=== PATIENT | male | born 1985 | race African-American/Black ===

== ENCOUNTER 2018-08-19 08:17 | Emergency (ER) | payer SELFPAY ==
[2018-08-19] MEDS ORDERED: predniSONE 20 MG TAB ONE (09:14)
[2018-08-19] MEDS ORDERED: KETOROLAC 30 MG/ML INJ ONE (09:14)
--- NOTE | 2018-08-19 09:32 | EDPHYS ---
Physician Documentation [facility] Name: Kin Hernandez Age: 33 yrs Sex: Male : 1985 Arrival Date: 08/19/2018 Time: 08:19 Bed 8 Private MD: ED Physician Mazin Warren HPI: 08/19 09:14 This 33 yrs old Black Male presents to ER via Ambulatory with complaints of Hip Pain. kdr 09:14 The patient or guardian reports pain. that occurred at an unknown site. The complaints kdr affect the Right posterior superior illiac crest. Onset: The symptoms/episode began/occurred He had femur surgery about two years ago and has had intermittent pain since then. For the last month, it has been worse. 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 Modifying factors: The symptoms are alleviated by nothing, the symptoms are aggravated by any movement. Associated signs and symptoms: Loss of consciousness: the patient experienced no loss of consciousness, Pertinent positives: None. Pertinent negatives: None. Severity of symptoms: At their worst the symptoms were mild, moderate, in the emergency department the symptoms are unchanged. The patient has experienced similar episodes in the past, a few times. The patient has not recently seen a physician. Historical: - Allergies: 08:36 No Known Allergies; ss - Home Meds: 08:36 None [Active]; ss - PMHx: 08:36 None; ss - PSHx: 08:36 R femur repair (heath placed); ss - Immunization history:: Adult Immunizations up to date. - Social history:: Smoking status: Patient uses tobacco products, smokes one-half pack cigarettes per day, recently quit 3 weeks ago. - Ebola Screening: : Patient denies exposure to infectious person Patient denies travel to an Ebola-affected area in the 21 days before illness onset. ROS: 09:14 Constitutional: Negative for fever, chills, and weight loss, Eyes: Negative for injury, kdr pain, redness, and discharge, Neck: Negative for injury, pain, and swelling, Cardiovascular: Negative for chest pain, palpitations, and edema, Respiratory: Negative for shortness of breath, cough, wheezing, and pleuritic chest pain, Abdomen/GI: Negative for abdominal pain, nausea, vomiting, diarrhea, and constipation, : Negative for injury, bleeding, discharge, and swelling, Skin: Negative for injury, rash, and discoloration, Neuro: Negative for headache, weakness, numbness, tingling, and seizure activity. Psych: Negative for depression, anxiety, suicide ideation, homicidal ideation, and hallucinations, Allergy/Immunology: Negative for hives, rash, and allergies, Endocrine: Negative for neck swelling, polydipsia, polyuria, polyphagia, and marked weight changes, Hematologic/Lymphatic: Negative for swollen nodes, abnormal bleeding, and unusual bruising. 09:14 Back: Positive for pain at rest, pain with movement, Negative for injury or acute deformity, decreased range of motion. Exam: 09:14 Constitutional: This is a well developed, well nourished patient who is awake, alert, kdr and in no acute distress. Head/Face: Normocephalic, atraumatic. Eyes: Pupils equal round and reactive to light, extra-ocular motions intact. Lids and lashes normal. Conjunctiva and sclera are non-icteric and not injected. Cornea within normal limits. Periorbital areas with no swelling, redness, or edema. Neck: Trachea midline, no thyromegaly or masses palpated, and no cervical lymphadenopathy. Supple, full range of motion without nuchal rigidity, or vertebral point tenderness. No Meningismus. Chest/axilla: Normal chest wall appearance and motion. Nontender with no deformity. No lesions are appreciated. Cardiovascular: Regular rate and rhythm with a normal S1 and S2. No gallops, murmurs, or rubs. Normal PMI, no JVD. No pulse deficits. Respiratory: Lungs have equal breath sounds bilaterally, clear to auscultation and percussion. No rales, rhonchi or wheezes noted. No increased work of breathing, no retractions or nasal flaring. Abdomen/GI: Soft, non-tender, with normal bowel sounds. No distension or tympany. No guarding or rebound. No evidence of tenderness throughout. Back: No spinal tenderness. No costovertebral tenderness. Full range of motion with pain. Skin: Warm, dry with normal turgor. Normal color with no rashes, no lesions, and no evidence of cellulitis. Neuro: Awake and alert, GCS 15, oriented to person, place, time, and situation. Cranial nerves II-XII grossly intact. Motor strength 5/5 in all extremities. Sensory grossly intact. Cerebellar exam normal. Normal gait. Psych: Awake, alert, with orientation to person, place and time. Behavior, mood, and affect are within normal limits. 09:14 Back: pain, of the right posterior superior illiac crest. Vital Signs: 08:33 BP 118 / 78; Pulse 77; Resp 15; Temp 97.5(TE); Pulse Ox 100% on R/A; Weight 74.84 kg; ss Height 6 ft. 0 in. (182.88 cm); Pain 8/10; 08:33 Body Mass Index 22.38 (74.84 kg, 182.88 cm) ss MDM: 09:14 Data reviewed: vital signs, nurses notes. Counseling: I had a detailed discussion with kdr the patient and/or guardian regarding: the historical points, exam findings, and any diagnostic results supporting the discharge/admit diagnosis, the need for outpatient follow up. 09:31 Patient medically screened. kdr Administered Medications: 09:07 Drug: predniSONE 60 mg Route: PO; hb 09:30 Follow up: Response: No adverse reaction hb 09:07 Drug: TORadol 60 mg Route: IM; Site: right deltoid; hb 09:30 Follow up: Response: No adverse reaction hb Disposition: 08/19/18 09:31 Discharged to Home. Impression: Pain in right hip, Strain of muscle, fascia and tendon of right hip. - Condition is Stable. - Discharge Instructions: Musculoskeletal Pain, Hip Pain. - Prescriptions for Ibuprofen 800 mg Oral Tablet - take 1 tablet by ORAL route every 8 hours As needed take with food; 30 tablet. Cyclobenzaprine 10 mg Oral Tablet - take 1 tablet by ORAL route every 8 hours As needed Do not take prior to or duing work or potentially dangerous situations.; 16 tablet. Medrol (Irineo) 4 mg Oral Tablets, Dose Pack - take 1 tablet by ORAL route as directed - follow package instructions; 1 packet. - Medication Reconciliation Form, Thank You Letter, Work release form form. - Follow up: Private Physician; When: 2 - 3 days; Reason: If symptoms return, Further diagnostic work-up, Recheck today's complaints, Continuance of care, Re-evaluation by your physician. - Problem is an acute exacerbation. - Symptoms have improved. Signatures: Mazin Warren MD MD [facility] Alanna Camp RN RN Jess Walls RN RN hb Corrections: (The following items were deleted from the chart) 09:50 09:31 08/19/2018 09:31 Discharged to Home. Impression: Pain in right hip; Strain of hb muscle, fascia and tendon of right hip. Condition is Stable. Forms are Medication Reconciliation Form, Thank You Letter, Antibiotic Education, Prescription Opioid Use. Follow up: Private Physician; When: 2 - 3 days; Reason: If symptoms return, Further diagnostic work-up, Recheck today's complaints, Continuance of care, Re-evaluation by your physician. Problem is an acute exacerbation. Symptoms have improved. kdr
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
== END 2018-08-19 09:50 | disposition home or self-care (01) ==
LOC: ER 08:17
DX: S76.011A Strain of muscle, fascia and tendon of right hip, initial encounter (principal); F17.210 Nicotine dependence, cigarettes, uncomplicated
CPT/HCPCS: 96372; 99283; J7512

== ENCOUNTER 2018-11-01 17:49 | Emergency (ER) | payer SELFPAY ==
--- OUTSIDE RECORDS SUMMARY | 2018-11-01 17:52 | XMS REPORT ---
:1985 [facility] Address [address] [place] [address] [address] [place] [address] Care Team Providers Name Role Phone Unavailable Unavailable Unavailable Problems This patient has no known problems. Allergies, Adverse Reactions, Alerts This patient has no known allergies or adverse reactions. Medications This patient has no known medications.
--- NOTE | 2018-11-01 19:13 | ER ---
Nurse's Notes [facility] Name: Kin Hernandez Age: 33 yrs Sex: Male : 1985 Arrival Date: 11/01/2018 Time: 17:51 Bed Waiting Private MD: Diagnosis: Presentation: 11/01 17:54 Presenting complaint: Patient states: left lower tooth pain x 2 days, reports "a little sv bit ago I started breaking out in cold sweat and trembling and I feel bad.". Transition of care: patient was not received from another setting of care. Onset of symptoms was October 30, 2018. Care prior to arrival: None. 17:54 Method Of Arrival: Ambulatory sv 17:54 Acuity: LARA 2 sv Triage Assessment: 17:54 General: Appears uncomfortable, Behavior is cooperative, appropriate for age, anxious. sv Pain: Complains of pain in mouth. Neuro: Level of Consciousness is awake, alert, obeys commands, Oriented to person, place, time, situation, Gait is steady. Respiratory: Respiratory effort is even, unlabored, Respiratory pattern is regular, symmetrical. Derm: Skin is clammy, Skin is normal. Historical: - Allergies: 17:55 No Known Allergies; sv - PMHx: 17:55 None; sv - PSHx: 17:55 R femur repair (heath placed); sv Vital Signs: 17:55 BP 144 / 102; Pulse 86; Resp 16; Temp 98.2; Pulse Ox 100% ; Weight 72.57 kg; Height 6 sv ft. 0 in. (182.88 cm); Pain 10/10; 17:55 Body Mass Index 21.70 (72.57 kg, 182.88 cm) sv ED Course: 17:51 Patient arrived in ED. ds1 17:55 Triage completed. sv 17:55 Arm band placed on. sv 18:30 Patient's name was called from ER lobby. No response. aj1 18:45 Patient's name was called from ER lobby. No response. sv 19:12 Patient's name was called from ER lobby. No response. aj 19:13 Garret Farooq MD is Attending Physician. aj Administered Medications: No medications were administered Point of Care Testing: Blood Glucose: 17:58 Blood Glucose: 96 mg/dL; sv Ranges: Outcome: 19:13 Patient left the ED. aj Signatures: Demetra Vital RN RN aj1 Jyoti Burnham RN RN sv Isabel Gonzalez RN RN aj Sanford, Demi ds1 Corrections: (The following items were deleted from the chart) 17:55 17:54 Acuity: LARA 3 sv sv
== END 2018-11-01 19:13 | disposition left against medical advice (07) ==
LOC: ER 17:49
DX: K08.89 Other specified disorders of teeth and supporting structures (principal); Z53.29 Procedure and treatment not carried out because of patient's decision for other reasons
CPT/HCPCS: 82962; 99281

== ENCOUNTER 2018-11-02 07:27 | Emergency (ER) | payer SELFPAY ==
--- OUTSIDE RECORDS SUMMARY | 2018-11-02 07:29 | XMS REPORT ---
:1985 [facility] Address [address] [place] [address] [address] [place] [address] Care Team Providers Name Role Phone Unavailable Unavailable Unavailable Problems This patient has no known problems. Allergies, Adverse Reactions, Alerts This patient has no known allergies or adverse reactions. Medications This patient has no known medications.
[2018-11-02 08:37] LABS: Absolute Monocytes 1.2 K/uL (0.1-1.3); Basophils % 0.4 % (0-1.3); Eosinophils % 0.1 % (0-4.4); Hematocrit 47.2 % (39.6-49.0); Lymphocytes % 5.1 % (15.3-44.8); MPV 10.2 fL (7.6-11.3); Monocytes % 6.4 % (3.3-12.3); RBC Red Blood Cell Count 5.17 M/uL (4.33-5.43)
[2018-11-02] MEDS ORDERED: KETOROLAC 30 MG/ML INJ ONE (08:40)
[2018-11-02] MEDS ORDERED: NA CHLORIDE 0.9% 1,000 ML ONE (08:40)
[2018-11-02] MEDS ORDERED: CLINDAMYCIN 900MG/D5W 900 MG/50 ML IVPB IV ONE (08:40)
[2018-11-02] MEDS ORDERED: DEXAMETHASONE 10 MG/ML VIAL ONE (08:50)
[2018-11-02] MEDS ORDERED: ONDANSETRON 4 MG/2 ML VIAL ONE (08:50)
[2018-11-02 09:12] LABS: ALT/SGPT 15 U/L (12-78); AST/SGOT 19 U/L (15-37); Albumin 4.2 g/dL (3.4-5.0); Alkaline Phosphatase 95 U/L (45-117); BUN Blood Urea Nitrogen 18 mg/dL (7-18); Bicarbonate 24 mmol/L (21-32); Bilirubin Total 0.6 mg/dL (0.2-1.0); Glucose Level 112 mg/dL (74-106); Potassium 3.6 mmol/L (3.5-5.1); Sodium Level 138 mmol/L (136-145)
[2018-11-02] MEDS ORDERED: CEFTRIAXONE/SWI 1gm 1 GM/10 ML SYR ONE (09:32)
--- NOTE | 2018-11-02 10:15 | ER ---
Nurse's Notes [facility] Name: Kin Hernandez Age: 33 yrs Sex: Male : 1985 Arrival Date: 11/02/2018 Time: 07:30 Bed 19 Private MD: Diagnosis: Dental caries;Dental root caries-abscess, moderate trismus;Elevated white blood cell count Presentation: 11/02 07:36 Presenting complaint: Patient states: dental pain x 4 days. Pt reports that his L lower ss molar is coming in and it has his whole jaw hurting and is swollen. Transition of care: patient was not received from another setting of care. Onset of symptoms was October 29, 2018. Risk Assessment: Do you want to hurt yourself or someone else? Patient reports no desire to harm self or others. Initial Sepsis Screen: Does the patient meet any 2 criteria? No. Patient's initial sepsis screen is negative. Does the patient have a suspected source of infection? No. Patient's initial sepsis screen is negative. Care prior to arrival: None. 07:36 Method Of Arrival: Ambulatory ss 07:36 Acuity: LARA 3 ss Triage Assessment: 08:00 General: Appears in no apparent distress. comfortable, Behavior is calm, cooperative, bp appropriate for age. Historical: - Allergies: 07:37 No Known Allergies; ss - Home Meds: 07:37 None [Active]; ss - PMHx: 07:37 None; ss - PSHx: 07:37 R femur; ss - Immunization history:: Adult Immunizations up to date. - Social history:: Smoking status: Patient uses tobacco products, denies chronic smoking, but will smoke occasionally. - Ebola Screening: : Patient denies exposure to infectious person Patient denies travel to an Ebola-affected area in the 21 days before illness onset. - Family history:: not pertinent. Screenin:36 Abuse screen: Denies threats or abuse. Denies injuries from another. Nutritional bp screening: No deficits noted. Tuberculosis screening: No symptoms or risk factors identified. Fall Risk None identified. Assessment: 07:35 General: Appears in no apparent distress. comfortable, slender, Behavior is bp cooperative, appropriate for age, anxious. Pain: Complains of pain in mouth. Neuro: Level of Consciousness is awake, alert, obeys commands, Oriented to person, place, time, situation, Appropriate for age. Cardiovascular: No deficits noted. Respiratory: Airway is patent Respiratory effort is even, unlabored, Respiratory pattern is regular, symmetrical. GI: No signs and/or symptoms were reported involving the gastrointestinal system. : No signs and/or symptoms were reported regarding the genitourinary system. EENT: Reports DENTAL PAIN. Derm: No deficits noted. Musculoskeletal: No deficits noted. 09:23 Reassessment: ALL CURRENT ORDERS COMPLETED, CT PENDING. bp 09:31 Reassessment: PT TO CT WITH [facility]. bp 09:54 Reassessment: PT RETURNED FROM CT. bp 10:28 Reassessment: TRANSFER IN PROCESS, NO ACUTE DISTRESS AT THIS TIME. bp 11:10 Reassessment: REPORT TO MARNIE GRADY AT [facility], TRANSPORT PENDING FOR TRANSFER. bp 11:48 Reassessment: [facility] AT B/S, PT [place] WITH [facility]. bp Vital Signs: 07:37 BP 114 / 87; Pulse 72; Resp 16; Temp 99.1(TE); Pulse Ox 100% on R/A; Weight 72.57 kg; ss Height 6 ft. 0 in. (182.88 cm); Pain 10/10; 09:21 BP 106 / 64; Pulse 86; Resp 16; Pulse Ox 100% ; bp 10:26 BP 116 / 65; Pulse 64; Resp 14; Pulse Ox 98% ; bp 11:11 BP 106 / 72; Pulse 79; Resp 16; Pulse Ox 98% ; bp 07:37 Body Mass Index 21.70 (72.57 kg, 182.88 cm) ED Course: 07:30 Patient arrived in ED. mr 07:32 Johnathan Waite, RN is Primary Nurse. bp 07:33 Allan Gandhi MD is Attending Physician. tw4 07:36 Patient has correct armband on for positive identification. Bed in low position. Call bp light in reach. Side rails up X 1. 07:37 Triage completed. ss 07:37 Arm band placed on right wrist. ss 07:46 Kyle Ness MD is Attending Physician. hemalatha 08:29 Lab(s) recollected, by me, sent to lab. Inserted saline lock: 20 gauge in right em1 forearm, using aseptic technique. Blood collected. 09:38 CT Soft Tissue Neck W/contr In Process Unspecified. EDMS 10:43 attempted transfer to [facility], pt was denied for lack of capacity. bd 11:10 No provider procedures requiring assistance completed. Patient transferred, IV remains bp in place. 11:22 pt accepted by [facility]. bd Administered Medications: 08:25 Drug: NS 0.9% 1000 ml Route: IV; Rate: 1 bolus; Site: right forearm; bp 09:30 Follow up: IV Status: Completed infusion; IV Intake: 1000ml bp 08:25 Drug: Clindamycin 900 mg Route: IVPB; Infused Over: 30 mins; Site: right forearm; bp 11:48 Follow up: IV Status: Completed infusion; IV Intake: 50ml bp 08:25 Drug: TORadol 30 mg Route: IVP; Site: right forearm; bp 08:46 Follow up: Response: No adverse reaction bp 08:45 Drug: Decadron - Dexamethasone 10 mg Route: IVP; Site: right forearm; bp 08:46 Follow up: Response: No adverse reaction bp 08:45 Drug: Zofran 4 mg Route: IVP; Site: right forearm; bp 08:46 Follow up: Response: No adverse reaction bp 09:15 Drug: Rocephin - (cefTRIAXone) 1 grams Route: IVPB; Infused Over: 30 mins; Site: right bp forearm; 10:29 Follow up: IV Status: Completed infusion; IV Intake: 20ml bp Intake: 09:30 IV: 1000ml; Total: 1000ml. bp 10:29 IV: 20ml; Total: 1020ml. bp 11:48 IV: 50ml; Total: 1070ml. bp Outcome: 10:14 ER care complete, transfer ordered by . hemalatha 11:11 Transferred by ground EMS to [facility], Transfer form completed. bp 11:11 Condition: stable 11:11 Instructed on the need for transfer. 11:49 Patient left the ED. bp Signatures: Dispatcher [employer] EDMS Deann Robb Corey, MD MD cha Rivera, Minerva mr Robbi, Gopal em1 Alanna Camp, MIGUEL A GRADY ss Johnathan Waite RN RN bp Wadley, Terrence, MD MD tw4 Corrections: (The following items were deleted from the chart) 10:43 07:36 Acuity: LARA 5 ss ss
--- NOTE | 2018-11-02 10:15 | EDPHYS ---
Physician Documentation [facility] Name: Kin Hernandez Age: 33 yrs Sex: Male : 1985 Arrival Date: 11/02/2018 Time: 07:30 Bed 19 Private MD: ED Physician Kyle Ness HPI: 11/02 08:19 This 33 yrs old Black Male presents to ER via Ambulatory with complaints of Jaw Pain. hemalatha 08:19 The patient or guardian reports pain, swelling, tenderness. The complaints affect the [facility] left jaw. Onset: The symptoms/episode began/occurred 3 day(s) ago. Associated signs and symptoms: The patient has no apparent associated signs or symptoms. The patient presents with pain, swelling. The problem is located in the lower left third molar and lower left second molar. Modifying factors: The symptoms are alleviated by nothing, the symptoms are aggravated by chewing. Historical: - Allergies: 07:37 No Known Allergies; ss - Home Meds: 07:37 None [Active]; ss - PMHx: 07:37 None; ss - PSHx: 07:37 R femur; ss - Immunization history:: Adult Immunizations up to date. - Social history:: Smoking status: Patient uses tobacco products, denies chronic smoking, but will smoke occasionally. - Ebola Screening: : Patient denies exposure to infectious person Patient denies travel to an Ebola-affected area in the 21 days before illness onset. - Family history:: not pertinent. ROS: 08:19 Constitutional: Negative for fever, chills, and weight loss, Eyes: Negative for injury, hemaaltha pain, redness, and discharge, Neck: Negative for injury, pain, and swelling, Cardiovascular: Negative for chest pain, palpitations, and edema, Respiratory: Negative for shortness of breath, cough, wheezing, and pleuritic chest pain, Abdomen/GI: Negative for abdominal pain, nausea, vomiting, diarrhea, and constipation, Back: Negative for injury and pain, : Negative for injury, bleeding, discharge, and swelling, MS/Extremity: Negative for injury and deformity, Skin: Negative for injury, rash, and discoloration, Neuro: Negative for headache, weakness, numbness, tingling, and seizure. 08:19 ENT: Positive for dental pain, Teeth pain Exam: 08:19 Constitutional: This is a well developed, well nourished patient who is awake, alert, hemalatha and in no acute distress. Eyes: Pupils equal round and reactive to light, extra-ocular motions intact. Lids and lashes normal. Conjunctiva and sclera are non-icteric and not injected. Cornea within normal limits. Periorbital areas with no swelling, redness, or edema. ENT: Nares patent. No nasal discharge, no septal abnormalities noted. Tympanic membranes are normal and external auditory canals are clear. Oropharynx with no redness, swelling, or masses, exudates, or evidence of obstruction, uvula midline. Mucous membranes moist. Neck: Trachea midline, no thyromegaly or masses palpated, and no cervical lymphadenopathy. Supple, full range of motion without nuchal rigidity, or vertebral point tenderness. No Meningismus. Chest/axilla: Normal chest wall appearance and motion. Nontender with no deformity. No lesions are appreciated. Cardiovascular: Regular rate and rhythm with a normal S1 and S2. No gallops, murmurs, or rubs. Normal PMI, no JVD. No pulse deficits. Respiratory: Lungs have equal breath sounds bilaterally, clear to auscultation and percussion. No rales, rhonchi or wheezes noted. No increased work of breathing, no retractions or nasal flaring. Abdomen/GI: Soft, non-tender, with normal bowel sounds. No distension or tympany. No guarding or rebound. No evidence of tenderness throughout. Back: No spinal tenderness. No costovertebral tenderness. Full range of motion. Male : Normal genitalia with no discharge or lesions. Skin: Warm, dry with normal turgor. Normal color with no rashes, no lesions, and no evidence of cellulitis. MS/ Extremity: Pulses equal, no cyanosis. Neurovascular intact. Full, normal range of motion. Neuro: Awake and alert, GCS 15, oriented to person, place, time, and situation. Cranial nerves II-XII grossly intact. Motor strength 5/5 in all extremities. Sensory grossly intact. Cerebellar exam normal. Normal gait. Psych: Awake, alert, with orientation to person, place and time. Behavior, mood, and affect are within normal limits. 08:19 Head/face: Noted is swelling, tenderness, that is mild, of the left ear and left jaw. Vital Signs: 07:37 BP 114 / 87; Pulse 72; Resp 16; Temp 99.1(TE); Pulse Ox 100% on R/A; Weight 72.57 kg; ss Height 6 ft. 0 in. (182.88 cm); Pain 10; 09:21 BP 106 / 64; Pulse 86; Resp 16; Pulse Ox 100% ; bp 10:26 BP 116 / 65; Pulse 64; Resp 14; Pulse Ox 98% ; bp 11:11 BP 106 / 72; Pulse 79; Resp 16; Pulse Ox 98% ; bp 07:37 Body Mass Index 21.70 (72.57 kg, 182.88 cm) ss MDM: 07:46 Patient medically screened. [facility] 08:21 Data reviewed: vital signs, nurses notes, lab test result(s), EKG, radiologic studies, hemalatha plain films. 11/02 08:19 Order name: CBC with Diff; Complete Time: 10:53 [facility] 11/02 08:19 Order name: Comprehensive Metabolic Panel; Complete Time: 09:55 [facility] 11/02 08:19 Order name: CT Soft Tissue Neck W/contr; Complete Time: 10:26 [facility] 11/02 08:42 Order name: CBC Smear Scan; Complete Time: 10:53 EDMS Administered Medications: 08:25 Drug: NS 0.9% 1000 ml Route: IV; Rate: 1 bolus; Site: right forearm; bp 09:30 Follow up: IV Status: Completed infusion; IV Intake: 1000ml bp 08:25 Drug: Clindamycin 900 mg Route: IVPB; Infused Over: 30 mins; Site: right forearm; bp 11:48 Follow up: IV Status: Completed infusion; IV Intake: 50ml bp 08:25 Drug: TORadol 30 mg Route: IVP; Site: right forearm; bp 08:46 Follow up: Response: No adverse reaction bp 08:45 Drug: Decadron - Dexamethasone 10 mg Route: IVP; Site: right forearm; bp 08:46 Follow up: Response: No adverse reaction bp 08:45 Drug: Zofran 4 mg Route: IVP; Site: right forearm; bp 08:46 Follow up: Response: No adverse reaction bp 09:15 Drug: Rocephin - (cefTRIAXone) 1 grams Route: IVPB; Infused Over: 30 mins; Site: right bp forearm; 10:29 Follow up: IV Status: Completed infusion; IV Intake: 20ml bp Disposition: 11/02/18 10:14 Transfer ordered to [facility]. Diagnosis are Dental caries, Dental root caries - abscess, moderate trismus, Elevated white blood cell count. - Reason for transfer: Higher level of care. - Accepting physician is to [place]. - Condition is Stable. - Problem is new. - Symptoms have improved. Signatures: Dispatcher [employer] EDKyle Macias MD MD cha Smirch, Shelby, RN RN Johnathan Waite RN RN bp Corrections: (The following items were deleted from the chart) 10:47 10:14 11/02/2018 10:14 Transfer ordered to [facility]. Diagnosis is Dental caries; hemalatha Dental root caries - abscess, moderate trismus; Elevated white blood cell count. Reason for transfer: Higher level of care. Accepting physician is to [facility]. Condition is Stable. Problem is new. Symptoms have improved. [facility] 10:54 10:47 11/02/2018 10:14 Transfer ordered to [facility]. Diagnosis is Dental caries; hemalatha Dental root caries - abscess, moderate trismus; Elevated white blood cell count. Reason for transfer: Higher level of care. Accepting physician is to [place]. Condition is Stable. Problem is new. Symptoms have improved. [facility] 11:49 10:54 11/02/2018 10:14 Transfer ordered to [facility]. bp Diagnosis is Dental caries; Dental root caries - abscess, moderate trismus; Elevated white blood cell count. Reason for transfer: Higher level of care. Accepting physician is to [place]. Condition is Stable. Problem is new. Symptoms have improved. hemalatha
--- NOTE | 2018-11-02 10:20 | RAD REPORT ---
EXAM DESCRIPTION: CT - Soft Tissue Neck W/Contr - 11/02/2018 9:38 am CLINICAL HISTORY: Neck pain/facial pain and swelling COMPARISON: None. TECHNIQUE: Computed axial tomography of the neck was obtained. 50 cc Isovue 300 was administered in travenously. Coronal and sagittal reconstruction was performed. All CT scans are performed using dose optimization technique as appropriate and may include automated exposure control or mA/KV adjustment according to patient size. FINDINGS: A 6 millimeter lucency is present within a left mandibular molar consistent with abscess. The left masseter and left medial pterygoid muscles are thickened and edematous. Stranding within th e left parapharyngeal fat. The edema within the subcutaneous tissues of the left lower face consisten t with cellulitis The oropharynx is deviated to the right. The left lateral mucosa of the oropharynx appears edematous. The remainder of the airway appears unremarkable. Reactive lymph nodes present. Left submandibular gland is mildly enlarged and heterogeneous IMPRESSION: 6 millimeter left mandibular molar abscess Left masseter and left medial pterygoid muscles are thickened and edematous consistent with myositis. Stranding within the left parapharyngeal fat and deviation of the oropharynx to the right with edema within the left lateral oropharynx. An abscess is not seen. Left submandibular gland inflammation
[2018-11-02 10:34] LABS: Blood Morphology Comment NOT SEEN (NOT SEEN); Platelet Estimate ADEQ; Urine White Blood Cell Casts OK
== END 2018-11-02 11:49 | disposition short-term general hospital (02) ==
LOC: ER 07:27
DX: K02.7 Dental root caries (principal); K02.9 Dental caries, unspecified; K04.7 Periapical abscess without sinus; R25.2 Cramp and spasm; D72.829 Elevated white blood cell count, unspecified; Z72.0 Tobacco use
CPT/HCPCS: 36415; 70491; 80053; 85025; J0696; J1100; J2405; J7030; Q9967

== ENCOUNTER 2020-03-31 15:32 | Emergency (ER) | payer SELFPAY ==
--- OUTSIDE RECORDS SUMMARY | 2020-03-31 15:34 | XMS REPORT | Continuity of Care Document ---
:1985 Author Organization [facility] t Address [address] [place] [address] Dr. Rosario [address] [place] [id number] Care Team Providers Name Role Phone Unavailable Unavailable Unavailable Problems This patient has no known problems. Allergies, Adverse Reactions, Alerts This patient has no known allergies or adverse reactions. Medications This patient has no known medications. Procedures This patient has no known procedures. Results This patient has no known results.
[2020-03-31] MEDS ORDERED: TETRACAINE HCL 0.5% 4ML OPTH ONE (16:13)
[2020-03-31] MEDS ORDERED: FLUORESCEIN SODIUM 1 MG/WRAP ONE (16:13)
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
[2020-03-31 18:54] VITALS: TEMP 98.6
[2020-03-31 18:59] VITALS: BP 129/89; O2SAT 100
== END 2020-03-31 18:45 | disposition home or self-care (01) ==
LOC: ER 15:32
DX: S02.832A Fracture of medial orbital wall, left side, initial encounter for closed fracture (principal); H11.32 Conjunctival hemorrhage, left eye; W22.8XXA Striking against or struck by other objects, initial encounter; Y93.9 Activity, unspecified; Y92.9 Unspecified place or not applicable
CPT/HCPCS: 70481; 99284; Q9967

== ENCOUNTER 2021-12-05 12:15 | Emergency (ER) | payer SELFPAY ==
--- OUTSIDE RECORDS SUMMARY | 2021-12-05 12:17 | XMS REPORT | Continuity of Care Document ---
:1985 Author Organization [facility] t Address [address] [place] [address] Care Team Providers Name Role Phone PCP, DOES NOT HAVE A Primary Care Physician Unavailable DALILA LIZAMA Attending Clinician Unavailable Dalila Lizama MD Attending Clinician Problems Condition Condition Condition Status Onset Resolution Last Treating Co mments Source Name Details Category Date Date Treatment Clinician Date Trauma Trauma Disease Active Univers 11-09 ity of 00:00: [place] 00 Medical Branch Displaced Displaced Disease Active Uni vers fracture fracture 11-09 ity of of 00:00: [place] acromial acromial 00 Medica l process, process, Branch right right shoulder, shoulder, initial initial encounter encounter for closed for closed fracture fracture Allergies, Adverse Reactions, Alerts Allergy Allergy Status Severity Reaction(s) Onset Inactive Treating Comm ents Source Name Type Date Date Clinician NO KNOWN Drug Active Univers ALLERGIE Class ity of [facility] Social History Social Habit Start Date Stop Date Quantity Comments Source Exposure to 2021-10-30 2021-11-09 Yes [facility] SARS-CoV-2 (event) 00:00:00 14:43:00 Medica l Branch Sex Ass[birth year] At [birth year] [facility] 00:00:00 00:00:00 [facility] Smoking Status Start Date Stop Date Source Unknown if ever smoked [facility] Medications Ordered Filled Start Stop Current Ordering Indication Dosage Frequency Signature Comments Components Source Medication Medication Date Date Medication? Clinician (SIG) Name Name HYDROcodone Yes 4647 1{tbl} Take 1 Un andi -acetaminop 5-22 tablet by ity of hen 5-325 00:00: mouth [place] mg tablet 00 every 6 Medical (six) Branch hours as needed for Pain (scale 7-10). Indication s: acute pain HYDROcodone Yes 4647 1{tbl} Take 1 Un andi -acetaminop 5-22 tablet by ity of hen 5-325 00:00: mouth [place] mg tablet 00 every 6 Medical (six) Branch hours as needed for Pain (scale 7-10). Indication s: acute pain HYDROcodone Yes 4647 1{tbl} Take 1 Un andi -acetaminop 5-22 tablet by ity of hen 5-325 00:00: mouth [place] mg tablet 00 every 6 Medical (six) Branch hours as needed for Pain (scale 7-10). Indication s: acute pain acetaminoph 2022- Yes [id number] 650mg Take 2 Univers en 325 mg 5-22 05-23 tablets by ity of tablet 00:00: 04:59 mouth [place] 00 :00 every 6 Medical (six) Branch hours. acetaminoph 2022- Yes [id number] 650mg Take 2 Univers en 325 mg 5-22 05-23 tablets by ity of tablet 00:00: 04:59 mouth [place] 00 :00 every 6 Medical (six) Branch hours. acetaminoph 2022- Yes [id number] 650mg Take 2 Univers en 325 mg 5-22 05-23 tablets by ity of tablet 00:00: 04:59 mouth [place] 00 :00 every 6 Medical (six) Branch hours. bacitracin 2021- Yes [id number] Apply to Univers 500 5-22 -06 affected ity of unit/gram 00:00: 04:59 area(s[place] 4 [place] ointment 00 :00 (four) Medical times Branch daily for 14 days. bacitracin 2021- Yes [id number] Apply to Univers 500 5-22 06-06 affected ity of unit/gram 00:00: 04:59 [place] 4 [place] ointment 00 :00 (four) Medical times Branch daily for 14 days. bacitracin 2021- Yes [id number] Apply to Univers 500 5-22 -06 affected ity of unit/gram 00:00: 04:59 area(s[place] 4 [place] ointment 00 :00 (four) Medical times Branch daily for 14 days. cephALEXin 2021- Yes [id number] 500mg Take 1 Univers (KEFLEX) 5-22 05-30 capsule by ity of 500 mg 00:00: 04:59 mouth 4 [place] capsule 00 :00 (four) Medical times Branch daily for 7 days. methocarbam 2021- Yes [id number] 500mg Take 1 Univers oL 500 mg 5- 05-30 tablet by ity of tablet 00:00: 04:59 mouth [place] 00 :00 every 6 Medical (six) Branch hours for 7 days. cephALEXin 2021- Yes [id number] 500mg Take 1 Univers (KEFLEX) 5- 05-30 capsule by ity of 500 mg 00:00: 04:59 mouth 4 [place] capsule 00 :00 (four) Medical times Branch daily for 7 days. methocarbam 2021- Yes [id number] 500mg Take 1 Univers oL 500 mg 5- 05-30 tablet by ity of tablet 00:00: 04:59 mouth [place] 00 :00 every 6 Medical (six) Branch hours for 7 days. cephALEXin 2021- Yes [id number] 500mg Take 1 Univers (KEFLEX) 5-22 05-30 capsule by ity of 500 mg 00:00: 04:59 mouth 4 [place] capsule 00 :00 (four) Medical times Branch daily for 7 days. methocarbam 2021- Yes [id number] 500mg Take 1 Univers oL 500 mg 5-22 05-30 tablet by ity of tablet 00:00: 04:59 mouth [place] 00 :00 every 6 Medical (six) Branch hours for 7 days. albuterol Yes [id number] 2.5mg Inhale 3 Univers 2.5 mg /3 2-13 mL every 4 ity of mL (0.083 00:00: (four) [place] %) 00 hours as Medical nebulizer needed for Bran ch solution Wheezing or Shortness of Breath. methylPREDN Yes [id number] Take by Univers ISolone 2-13 mouth ity of (MEDROL, 00:00: SEE-INSTRU Gage as EARNESTINE,) 4 mg 00 CTIONS. Medica l tablets follow Branch package directions benzonatate 2019-0 Yes [id number] 100mg Take 1 Univers 100 mg 2-13 capsule by ity of capsule 00:00: mouth 3 [place] 00 (three) Medical times Branch daily as needed for Cough. albuterol 2019-0 Yes [id number] 2.5mg Inhale 3 Univers 2.5 mg /3 2-13 mL every 4 ity of mL (0.083 00:00: (four) [place] %) 00 hours as Medical nebulizer needed for Bran ch solution Wheezing or Shortness of Breath. methylPREDN 2019-0 Yes [id number] Take by Univers ISolone 2-13 mouth ity of (MEDROL, 00:00: SEE-INSTRU Gage as EARNESTINE,) 4 mg 00 CTIONS. Medica l tablets follow Branch package directions benzonatate 2018-0 Yes [id number] 100mg Take 1 Univers 100 mg 2-13 capsule by ity of capsule 00:00: mouth 3 [place] 00 (three) Medical times Branch daily as needed for Cough. albuterol 2018-0 Yes [id number] 2.5mg Inhale 3 Univers 2.5 mg /3 2-13 mL every 4 ity of mL (0.083 00:00: (four) [place] %) 00 hours as Medical nebulizer needed for Bran ch solution Wheezing or Shortness of Breath. methylPREDN 2018-0 Yes [id number] Take by Univers ISolone 2-13 mouth ity of (MEDROL, 00:00: SEE-INSTRU [place] as EARNESTINE,) 4 mg 00 CTIONS. Medica l tablets follow Branch package directions benzonatate 2019-0 Yes [id number] 100mg Take 1 Univers 100 mg 2-13 capsule by ity of capsule 00:00: mouth 3 [place] 00 (three) Medical times Branch daily as needed for Cough. azithromyci 2019-0 Yes [id number] 250mg Take 1 Univers n 2-05 tablet by ity of (ZITHROMAX 00:00: mouth [place] Z-EARNESTINE) 250 00 SEE-INSTRU Med ical mg tablet CTIONS. Branch Take 500 mg day 1, then 250 mg days 2 to 5. azithromyci 2019-0 Yes [id number] 250mg Take 1 Univers n 2-05 tablet by ity of (ZITHROMAX 00:00: mouth [place] Z-EARNESTINE) 250 00 SEE-INSTRU Med ical mg tablet CTIONS. Branch Take 500 mg day 1, then 250 mg days 2 to 5. azithromyci 2019-0 Yes [id number] 250mg Take 1 [facility] 2-05 tablet by ity of (ZITHROMAX 00:00: mouth [place] Z-EARNESTINE) 250 00 SEE-INSTRU Med ical mg tablet CTIONS. Branch Take 500 mg day 1, then 250 mg days 2 to 5. Immunizations Ordered Filled Immunization Date Status Comments Betty kirby Immunization Name Name SARS-COV-2 COVID-19 2021-02-14 Completed Unive rsity of MODERNA VACCINE 00:00:00 [facility] SARS-COV-2 COVID-19 2021-02-14 Completed Unive rsity of MODERNA VACCINE 00:00:00 [facility] SARS-COV-2 COVID-19 2021-02-14 Completed Unive rsity of MODERNA VACCINE 00:00:00 [facility] Vital Signs Vital Name Observation Time Observation Value Comments Source Body temperature 2021-11-12 17:55:00 36.22 Prabha [facility] Body height 2021-11-12 17:55:[address] [facility] Body weight 2021-11-12 17:55:[address] [facility] BMI 2021-11-12 17:55:00 23.71 kg/m2 [facility] Procedures Procedure Date / Time Performed Performing Clinician Betty kirby XR SHOULDER 2+ VW 2021-11-12 18:07:14 Chepe Lizama [facility] Encounters Start End Encounter Admission Attending Care Care Encounter Source Date/Time Date/Time Type Type Clinicians Facility Department ID 2021-11-12 2021-11-12 Outpatient R ALDA [facility] [id number] Univers 13:02:53 23:59:00 CHEPE maradiaga [facility] 2021-11-12 2021-11-12 [facility] [id number] Univers 13:02:53 23:59:00 Encounter Chepe OBRIEN [id number] ity of [facility] [id number] [facility] AT [phone] Tn vanessa AUGUSTINE 809 [facility] 2021-11-12 2021-11-12 Office Alda [facility] [id number] Univers 13:45:00 14:00:[address] [id number] [facility] [id number] [facility] AT [phone] Tn vanessa AUGUSTINE 198 [facility] Results This patient has no known results.
--- NOTE | 2021-12-05 13:18 | RAD REPORT ---
EXAM DESCRIPTION: RAD - Shoulder Right 2 View - 12/05/2021 12:58 pm CLINICAL HISTORY: PAIN COMPARISON: No comparisons FINDINGS/IMPRESSION: Fracture involving the right scapula which extends to the glenoid and also invo lves the right acromion. No dislocation is identified. CT could better delineate the extent of the fr acture.
--- NOTE | 2021-12-05 14:23 | RAD REPORT ---
EXAM DESCRIPTION: CT - Thorax Wo Con - 12/05/2021 2:05 pm CLINICAL HISTORY: evaluate fracture COMPARISON: No comparisons FINDINGS: Chest Wall: No suspicious thyroid nodules or pathologic lymphadenopathy. Lungs: No acute abnormality. Pleura: No significant effusions or pneumothorax. Mediastinum/maggie: No pathologic lymphadenopathy. Pulmonary arteries/Aorta: Limited evaluation without contrast. No aortic aneurysm. Heart: No significant pericardial effusion. Normal heart size. Upper abdomen: No acute abnormality. Bones: Fracture of the right scapula is identified. The fracture extends into the bony glenoid and ne ck of the scapula the clavicle is intact. The acromion is involved. The right AC joint is located. No other fractures are seen . All CT scans are performed using dose optimization technique as appropriate and may include automated exposure control or mA/KV adjustment according to patient size. IMPRESSION: Right scapular fracture involving the glenoid, scapular neck, and acromion. No other fra ctures are identified. The shoulder is located.
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
[2021-12-05 15:20] VITALS: BP 124/91; TEMP 98; O2SAT 99
== END 2021-12-05 14:47 | disposition home or self-care (01) ==
LOC: ER 12:15
DX: S42.101A Fracture of unspecified part of scapula, right shoulder, initial encounter for closed fracture (principal); F17.210 Nicotine dependence, cigarettes, uncomplicated
CPT/HCPCS: 71250; 99283